=== PATIENT | male | born 1980 | race Caucasian/White ===

== ENCOUNTER → 2021-04-13 12:18 | Outpatient (CLI) | payer BC ==
[2020-12-05 10:19] VITALS: BMI 37.2
[~2021-04-13 12:18] MED LIST: COREG12.5 MG PO; DILAUDID2 MG PO; HYDROCODON-ACE1 EAC7 PO; LIPITOR40 MG PO; LOSARTAN-HCTZ1 EAC1 PO; LYRICA75 MG PO; OMEPRAZOLE CAP 20M PO; PROTONIX40 MG; ZOFRAN ODT4 MG/UDTAB PO
[2021-04-13 13:18] LABS: T4 THYROXIN - FREE 0.92 ng/dL (0.76-1.46); THYROID STIMULATING HORMONE 1.62 uIU/mL (0.36-3.74)
== END | disposition home or self-care (01) ==
LOC: D.CT 12:18
PROVIDERS: ATTEND Nurse Practitioner
DX: D35.01 Benign neoplasm of right adrenal gland (principal)